=== PATIENT | male | born 1955 | race Caucasian/White ===

== ENCOUNTER 2017-07-01 08:29 | Day surgery (SDC) | payer BC ==
[~2017-07-01 08:29] MED LIST: NS 500 ML IV 500 ML IV ONE; VERSED ONE
[2017-07-01] MEDS ORDERED: NS 1/2 1000 ML IV 1,000 ML IV ONE ×3 (09:00)
[2017-07-01] MEDS ORDERED: TETRACAINE 0.5% OPHTH 1 DOSE AFFEYE ONE ×4 (09:00→11:05)
[2017-07-01] MEDS ORDERED: VIGAMOX 0.5% OPHTH 1 DOSE AFFEYE ONE ×5 (09:05→11:46)
[2017-07-01] MEDS ORDERED: PROLENSA OPHTH 1 DOSE AFFEYE ONE (09:16)
[2017-07-01] MEDS ORDERED: ALPHAGAN-P OPHTH 1 DOSE AFFEYE ONE (09:17)
[2017-07-01] MEDS ORDERED: CYCLOGYL 1% OPHTH 1 DOSE OP ONE ×3 (09:18→09:20)
[2017-07-01] MEDS ORDERED: MYDRIACIL OPHTH 1 DOSE AFFEYE ONE ×3 (09:18→09:20)
[2017-07-01] MEDS ORDERED: AK-DILATE 2.5% OPHTH 1 DOSE OP ONE ×3 (09:18→09:20)
[2017-07-01] MEDS ORDERED: VERSED IVP ONE ×2 (09:35→11:06)
[2017-07-01] MEDS ORDERED: AK-DILATE 10% OPHTH 1 DOSE AFFEYE ONE ×2 (09:36→11:07)
[2017-07-01] MEDS ORDERED: BETADINE OPHTH SOLN 5% EACHEYE ONE (11:10)
[2017-07-01] MEDS ORDERED: DUOVISC IO ONE ×2 (11:20→11:32)
[2017-07-01] MEDS ORDERED: ADRENALINE CHL INJ IJ ONE ×2 (11:20→11:32)
[2017-07-01] MEDS ORDERED: XYLOCAINE-MPF 1% IJ ONE ×2 (11:20→11:32)
[2017-07-01] MEDS ORDERED: BSS OPHTH (PLAIN) 500 ML with VANCOMYCIN HCL 500 MG VIAL 25 MG, ADRENALINE CHL INJ 1 MG IR ONE ×6 (11:21)
[2017-07-01 12:20] VITALS: BP 135/77
== END 2017-07-01 12:20 | disposition home or self-care (01) ==
LOC: SURG1 08:29
PROVIDERS: ATTEND Ophthalmology
PROC: 08RJ3JZ Replacement of Right Lens with Synthetic Substitute, Percutaneous Approach (ICD-10-PCS; principal; 2017-07-01 12:00)
PROC: 08DJ3ZZ Extraction of Right Lens, Percutaneous Approach (ICD-10-PCS; principal; 2017-07-01 12:00)
DX: H25.11 Age-related nuclear cataract, right eye (principal); H25.011 Cortical age-related cataract, right eye; H25.041 Posterior subcapsular polar age-related cataract, right eye; H52.221 Regular astigmatism, right eye
CPT/HCPCS: V2797; A4217; J0170; J2250; J3370